=== PATIENT | female | born 1995 | race Hispanic/Latino ===

== ENCOUNTER 2024-11-21 08:10 | Inpatient (IN) | payer BC ==
[~2024-11-21] VITALS: Ht 165.1 cm; Wt 82.3 kg
[2024-11-21] MEDS ORDERED: birth control (08:35)
[2024-11-21 12:08] VITALS: PULSE 72; RESP 18; TEMP 98.3
[2024-11-21 12:25] VITALS: BP 146/77; O2SAT 99
[2024-11-21 12:44] VITALS: BP 137/74; PULSE 66; RESP 18; TEMP 98.7; O2SAT 100
[2024-11-21 16:17] LABS: TROPONIN I 0.01 ng/mL (0-0.300)
[2024-11-21 20:00] VITALS: BP 137/74; PULSE 66; RESP 18; TEMP 98.7; O2SAT 100
[2024-11-21 20:41] VITALS: BP 157/88; PULSE 73; RESP 18; TEMP 98.2; O2SAT 100
[2024-11-21] MEDS ORDERED: ONDANSETRON HCL INJ 2MG/ML 2ML 2 MG/ML VIAL IV PRN (22:00)
[2024-11-21] MEDS: NITROFURANTOIN MACROCRYSTALS 100 MG CAP PO SCH (22:21)
[2024-11-22 00:24] VITALS: BP 145/75; PULSE 72; RESP 17; TEMP 98.3; O2SAT 100
[2024-11-22 04:19] VITALS: BP 115/74; PULSE 67; RESP 16; TEMP 98.4; O2SAT 100
[2024-11-22 05:18] LABS: BASOPHILS % 0.3 % (0.0-1.0); EOSINOPHILS # (AUTO) 0.2 (0.0-0.4); EOSINOPHILS % 2.8 % (0.0-6.0); HEMATOCRIT 35.1 % (34.2-44.1); HEMOGLOBIN 12.5 g/dL (12.0-16.0); LYMPHOCYTES # (AUTO) 2.2 (1.0-3.2); LYMPHOCYTES % 35.8 % (18.0-39.1); MEAN CORPUSCULAR HEMOGLOBIN 31.8 pg (28-32); MEAN CORPUSCULAR HGB CONC 35.6 g/dL (31-35); MEAN CORPUSCULAR VOLUME 89.3 fL (81-99); MONOCYTES # (AUTO) 0.3 (0.2-0.8); MONOCYTES % 4.1 % (4.4-11.3); NEUTROPHILS # (AUTO) 3.4 (2.1-6.9); NEUTROPHILS % 56.8 % (38.7-80.0); PLATELET COUNT 265 x10e3/uL (140-360); RED BLOOD COUNT 3.93 x10e6/uL (3.6-5.1); RED CELL DISTRIBUTION WIDTH 12.2 % (11.7-14.4); WHITE BLOOD COUNT 6.06 x10e3/uL (4.8-10.8)
[2024-11-22 05:39] LABS: CREATINE KINASE 60 IU/L (29-168)
[2024-11-22 05:42] LABS: ANION GAP 11.8 mmol/L (8-16); CALCIUM 8.8 mg/dL (8.4-10.2); CHOL/HDL RATIO 3.3 (3.0-3.6); CREATININE, SERUM 0.76 mg/dL (0.57-1.11); POTASSIUM 3.8 mmol/L (3.5-5.1)
[2024-11-22 06:12] LABS: TROPONIN I < 0.001 ng/mL (0-0.300)
[2024-11-22 08:00] VITALS: BP 141/86; PULSE 69; RESP 17; TEMP 98.2; O2SAT 100
[2024-11-22] MEDS: ACETAMINOPHEN 325 MG TAB PO PRN (11:17)
[2024-11-22 12:00] VITALS: BP 137/98; PULSE 78; RESP 18; TEMP 98.6; O2SAT 99
[2024-11-22 13:19] LABS: CREATINE KINASE 62 IU/L (29-168)
[2024-11-22 13:27] LABS: TROPONIN I < 0.001 ng/mL (0-0.300)
[2024-11-22 13:33] VITALS: BP 141/86; PULSE 69; RESP 17; TEMP 98.2; O2SAT 100
[2024-11-22 16:00] VITALS: BP 140/89; PULSE 63; RESP 16; TEMP 99; O2SAT 100
[2024-11-22] MEDS ORDERED: NITROFURANTOIN100 MG PO (17:38)
== END 2024-11-22 18:30 | disposition home or self-care (01) | DRG 690 ==
LOC: FSED 08:24 → ERHOLD 09:55 → MED/SURG 12:39
PROVIDERS: ADMIT Internal Medicine; ATTEND Internal Medicine
PROC: 0HQ1XZZ Repair Face Skin, External Approach (ICD-10-PCS; principal; 2024-11-21)
DX: N39.0 Urinary tract infection, site not specified (principal); Q61.3 Polycystic kidney, unspecified; R55 Syncope and collapse; I49.8 Other specified cardiac arrhythmias; R03.0 Elevated blood-pressure reading, without diagnosis of hypertension; S01.81XA Laceration without foreign body of other part of head, initial encounter; W18.39XA Other fall on same level, initial encounter; Y92.012 Bathroom of single-family (private) house as the place of occurrence of the external cause; Z91.048 Other nonmedicinal substance allergy status
CPT/HCPCS: 36415; 70450; 70551; 80048; 80053; 80061; 80307; 81003; 81025; 82550; 82553; 83735; 84484; 85025; 87086; 93005; 93306; 93880; 99284